=== PATIENT | female | born 1940 | race Caucasian/White ===

== ENCOUNTER 2017-03-23 10:29 | Emergency (ER) | payer MEDICARE, BC ==
[~2017-03-23] VITALS: Ht 167.6 cm; Wt 58.2 kg
[~2017-03-23 10:29] MED LIST: ASPI-611 PO; CALC600T12 PO; CHOL100046 PO; CYAN100070 PO; FOLI-43 PO; MULT-1141 PO; NOR5T PF; SIMV20TA5 PO; SYN0.088T PO
[2017-03-23 11:53] LABS: HEMATOCRIT 36.1 % (35.0-45.0); HEMOGLOBIN 12.5 g/dl (12.0-16.0); MEAN CORPUSCULAR HEMOGLOBIN 38.5 PG (27.0-31.0); MEAN CORPUSCULAR HGB CONC 34.5 % (33.0-36.5); MEAN CORPUSCULAR VOLUME 111.4 FL (78-98); MEAN PLATELET VOLUME 11.6 FL (7.4-10.4); PLATELET COUNT 170 X10'3 (140-440); RED BLOOD COUNT 3.24 X10'6 (4.20-5.60); RED CELL DISTRIBUTION WIDTH 15.9 % (11.5-14.5); WHITE BLOOD COUNT 13.8 X10'3 (4.5-11.0)
[2017-03-23 12:11] LABS: TOTAL CELLS COUNTED 100
[2017-03-23 12:16] LABS: ALANINE AMINOTRANSFERASE 21 U/L (12-78); ALBUMIN 4.1 G/DL (3.4-5.0); ALBUMIN/GLOBULIN RATIO 1.1 (1.1-1.5); ALKALINE PHOSPHATASE 71 IU/L (46-116); ANION GAP 9 (8-16); ASPARTATE AMINO TRANSFERASE 27 U/L (10-37); BILIRUBIN,TOTAL 0.3 MG/DL (0.1-1.0); BLOOD UREA NITROGEN 10 MG/DL (7-18); BUN/CREATININE RATIO 8.3 (6.6-38.0); CALCIUM 10.2 MG/DL (8.5-10.1); CHLORIDE 104 MMOL/L (99-107); GLUCOSE 98 MG/DL (70-104); MAGNESIUM 1.8 MG/DL (1.5-2.4); POTASSIUM 4.2 MMOL/L (3.5-5.1); SODIUM 141 MMOL/L (135-145); TOTAL CARBON DIOXIDE 28.4 MMOL/L (24-32); eGFR 44 ML/MIN
[2017-03-23 12:20] LABS: ANISOCYTOSIS 1+; LARGE PLATELETS FEW; PLATELET ESTIMATE NORMAL; TOXIC GRANULATION 3+; TOXIC VACUOLATION 1+
[2017-03-23 12:21] LABS: POLYCHROMASIA FEW
[2017-03-23] MEDS ORDERED: thiamine 100mg tablet PO ONE (12:50)
[2017-03-23] MEDS ORDERED: folic acid 1mg tablet PO ONE (12:50)
[2017-03-23] MEDS ORDERED: chlordiazePOXIDE 25mg capsule PO ONE (12:50)
[2017-03-23 13:15] LABS: CLARITY,URINE SLIGHTLY CLOUDY (Clear); COLOR,URINE STRAW (Yellow); GLUCOSE, URINE NEGATIVE (Neg); KETONES,URINE NEGATIVE (Neg); LEUKOCYTE ESTERASE ,URINE MODERATE (Neg); NITRITES, URINE NEGATIVE (Neg); OCCULT BLOOD,URINE NEGATIVE (Neg); PH,URINE 7.5 (4.8-8.0); PROTEIN,URINE NEGATIVE (Neg); UROBILINOGEN,URINE 0.2 E.U/dL (0.2-1.0)
[2017-03-23 13:18] LABS: UA COLLECTION TYPE CLN CATCH MIDSTREAM
[2017-03-23 13:21] LABS: MUCUS STRANDS FEW /LPF (Neg); SQUAMOUS EPITHELIAL CELL,UR MODERATE /LPF (FEW); TRANSITIONAL EPI CELLS,URINE MODERATE /HPF
[2017-03-23 13:22] LABS: BACTERIA,URINE FEW /HPF (Neg); RBC,URINE 0-2 /HPF (0-2); WBC CLUMPS,URINE FEW /HPF (NEGATIVE)
[2017-03-23 14:14] VITALS: BP 150/79
== END 2017-03-23 13:55 | disposition home or self-care (01) ==
LOC: ER 10:29
DX: R25.1 Tremor, unspecified (principal); I10 Essential (primary) hypertension; J44.9 Chronic obstructive pulmonary disease, unspecified; F17.210 Nicotine dependence, cigarettes, uncomplicated; Z79.82 Long term (current) use of aspirin
CPT/HCPCS: 36415; 71046; 80053; 81001; 83735; 84439; 84443; 84484; 85025; 87088; 93005; 99285

== ENCOUNTER 2018-11-19 03:37 | Emergency (ER) | payer MEDICARE, BC ==
[~2018-11-19] VITALS: Ht 170.2 cm; Wt 59.1 kg
[2018-11-19 04:06] LABS: BASOPHILS # (AUTO) 0.1 X10'3 (0-0.2); BASOPHILS % (AUTO) 0.4 % (0-1); EOSINOPHILS # (AUTO) 0.3 X10'3 (0-0.9); EOSINOPHILS % (AUTO) 2.2 % (0-6); HEMATOCRIT 35.3 % (35.0-45.0); LYMPHOCYTES # (AUTO) 2.3 X10'3 (1.1-4.8); LYMPHOCYTES % (AUTO) 15.2 % (21-51); MEAN CORPUSCULAR HEMOGLOBIN 34.9 PG (27.0-31.0); MEAN CORPUSCULAR HGB CONC 34.1 g/dL (33.0-36.5); MEAN CORPUSCULAR VOLUME 102.5 FL (78-98); MONOCYTES % (AUTO) 6.5 % (2-12); NEUTROPHILS # (AUTO) 11.6 X10'3 (1.8-7.7); NEUTROPHILS % (AUTO) 75.7 % (42-75); PLATELET COUNT 164 X10'3 (140-440); RED BLOOD COUNT 3.45 X10'6 (4.20-5.60); RED CELL DISTRIBUTION WIDTH 14.3 % (11.5-14.5); WHITE BLOOD COUNT 15.3 X10'3 (4.5-11.0)
[2018-11-19 04:15] LABS: PARTIAL THROMBOPLASTIN TIME 26 SECONDS (22-32)
[2018-11-19 04:18] LABS: ALANINE AMINOTRANSFERASE 23 U/L (12-78); ALBUMIN/GLOBULIN RATIO 1.1 (1.1-1.5); ALKALINE PHOSPHATASE 72 IU/L (46-116); ANION GAP 12 (8-16); ASPARTATE AMINO TRANSFERASE 19 U/L (10-37); BILIRUBIN,TOTAL 0.2 MG/DL (0.1-1.0); BLOOD UREA NITROGEN 21 MG/DL (7-18); BUN/CREATININE RATIO 13.3 (6.6-38.0); CALCIUM 10.1 MG/DL (8.5-10.1); CHLORIDE 105 MMOL/L (99-107); CREATININE 1.58 MG/DL (0.40-0.90); GLUCOSE 113 MG/DL (70-104); POTASSIUM 4.2 MMOL/L (3.5-5.1); SODIUM 142 MMOL/L (135-145); TOTAL CARBON DIOXIDE 25.4 MMOL/L (24-32); TOTAL PROTEIN 7.7 G/DL (6.4-8.2); eGFR 32 ML/MIN
[2018-11-19] MEDS ORDERED: morphine 4 MG/ML inj SYRINge IV PRN (04:40)
[2018-11-19] MEDS ORDERED: ondansetron/PF 4mg/2ml inj IV ONE (04:40)
[2018-11-19 05:08] LABS: LIPASE 223 U/L (73-393)
[2018-11-19] MEDS ORDERED: HYDR-3965 PO (06:35)
[2018-11-19 06:54] VITALS: BP 112/60
== END 2018-11-19 07:03 | disposition home or self-care (01) ==
LOC: ER 03:37
DX: K80.20 Calculus of gallbladder without cholecystitis without obstruction (principal); R10.11 Right upper quadrant pain; R10.12 Left upper quadrant pain; I10 Essential (primary) hypertension; J44.9 Chronic obstructive pulmonary disease, unspecified; F17.200 Nicotine dependence, unspecified, uncomplicated; Z79.82 Long term (current) use of aspirin; Z79.899 Other long term (current) drug therapy
CPT/HCPCS: 36415; 71045; 74176; 80053; 83690; 84484; 85025; 85610; 85730; 93005; 96374; 96375; 99284; J2270; J2405

== ENCOUNTER 2020-01-09 13:39 | Emergency (ER) | payer MEDICARE, BC ==
[~2020-01-09] VITALS: Ht 167.6 cm; Wt 57.7 kg
[~2020-01-09 13:39] MED LIST changes: -CALC600T12 PO; +CALC600T15 PO; +SIMV-42 PO; -SIMV20TA5 PO
[2020-01-09 13:46] VITALS: BP 148/11
[2020-01-09 14:24] LABS: BASOPHILS # (AUTO) 0.1 X10'3 (0-0.2); EOSINOPHILS # (AUTO) 0.1 X10'3 (0-0.9); EOSINOPHILS % (AUTO) 0.6 % (0-6); HEMATOCRIT 33.6 % (35.0-45.0); HEMOGLOBIN 11.4 g/dl (12.0-16.0); LYMPHOCYTES # (AUTO) 2.4 X10'3 (1.1-4.8); LYMPHOCYTES % (AUTO) 26.7 % (21-51); MEAN CORPUSCULAR HEMOGLOBIN 35.4 PG (27.0-31.0); MEAN CORPUSCULAR VOLUME 104.2 FL (78-98); MEAN PLATELET VOLUME 11.3 FL (7.4-10.4); MONOCYTES # (AUTO) 0.8 X10'3 (0-0.9); MONOCYTES % (AUTO) 9.1 % (2-12); NEUTROPHILS # (AUTO) 5.7 X10'3 (1.8-7.7); NEUTROPHILS % (AUTO) 62.6 % (42-75); PLATELET COUNT 138 X10'3 (140-440); RED BLOOD COUNT 3.22 X10'6 (4.20-5.60); RED CELL DISTRIBUTION WIDTH 13.8 % (11.5-14.5); WHITE BLOOD COUNT 9.2 X10'3 (4.5-11.0)
[2020-01-09 14:40] LABS: ALANINE AMINOTRANSFERASE 20 U/L (12-78); ALBUMIN/GLOBULIN RATIO 1.1 (1.1-1.5); ALKALINE PHOSPHATASE 74 IU/L (46-116); ANION GAP 8 (8-16); ASPARTATE AMINO TRANSFERASE 15 U/L (10-37); BILIRUBIN,TOTAL 0.2 MG/DL (0.1-1.0); BLOOD UREA NITROGEN 21 MG/DL (7-18); BUN/CREATININE RATIO 12.2 (6.6-38.0); CALCIUM 9.3 MG/DL (8.5-10.1); CHLORIDE 104 MMOL/L (99-107); CREATININE 1.72 MG/DL (0.40-0.90); GLUCOSE 96 MG/DL (70-104); SODIUM 138 MMOL/L (135-145); TOTAL CARBON DIOXIDE 25.8 MMOL/L (24-32); TOTAL PROTEIN 7.8 G/DL (6.4-8.2); eGFR 29 ML/MIN
[2020-01-09] MEDS ORDERED: PRED20TA PO (15:10)
[2020-01-09] MEDS ORDERED: AMOX-117 PO (15:10)
[2020-01-09] MEDS ORDERED: predniSONE 20 mg tablet PO ONE (15:10)
[2020-01-09] MEDS ORDERED: ALBU6.7H9 INH (15:10)
[2020-01-09 15:22] LABS: LARGE PLATELETS FEW; PLATELET ESTIMATE DECREASED
== END 2020-01-09 15:57 | disposition home or self-care (01) ==
LOC: ER 13:40
DX: J44.1 Chronic obstructive pulmonary disease with (acute) exacerbation (principal); J40 Bronchitis, not specified as acute or chronic; R06.02 Shortness of breath; R05 Cough; Z20.828 Contact with and (suspected) exposure to other viral communicable diseases; I10 Essential (primary) hypertension; F41.9 Anxiety disorder, unspecified; Z87.11 Personal history of peptic ulcer disease; Z98.890 Other specified postprocedural states; Z72.89 Other problems related to lifestyle; Z79.2 Long term (current) use of antibiotics; Z79.82 Long term (current) use of aspirin; Z79.899 Other long term (current) drug therapy
CPT/HCPCS: 36415; 71046; 80053; 83880; 84484; 85025; 87635; 93005; 99285; C9803; J7512; 85008

== ENCOUNTER 2020-01-13 11:27 | Emergency (ER) | payer MEDICARE, BC ==
[~2020-01-13] VITALS: Ht 167.6 cm; Wt 57.7 kg
[~2020-01-13 11:27] MED LIST changes: +ALBU6.7H9 INH; +AMOX-117 PO; +PRED20TA PO
[2020-01-13] MEDS ORDERED: aspirin 81mg tab.chew PO ONE (11:35)
[2020-01-13 12:23] LABS: BASOPHILS % (AUTO) 0.4 % (0-1); EOSINOPHILS % (AUTO) 0.2 % (0-6); HEMATOCRIT 35.8 % (35.0-45.0); HEMOGLOBIN 12.3 g/dl (12.0-16.0); LYMPHOCYTES # (AUTO) 1.1 X10'3 (1.1-4.8); LYMPHOCYTES % (AUTO) 10.3 % (21-51); MEAN CORPUSCULAR HEMOGLOBIN 35.6 PG (27.0-31.0); MEAN CORPUSCULAR HGB CONC 34.3 g/dL (33.0-36.5); MEAN CORPUSCULAR VOLUME 103.9 FL (78-98); MEAN PLATELET VOLUME 11.3 FL (7.4-10.4); MONOCYTES # (AUTO) 0.3 X10'3 (0-0.9); MONOCYTES % (AUTO) 2.9 % (2-12); NEUTROPHILS # (AUTO) 8.8 X10'3 (1.8-7.7); NEUTROPHILS % (AUTO) 86.2 % (42-75); PLATELET COUNT 176 X10'3 (140-440); RED BLOOD COUNT 3.44 X10'6 (4.20-5.60); RED CELL DISTRIBUTION WIDTH 13.7 % (11.5-14.5); WHITE BLOOD COUNT 10.3 X10'3 (4.5-11.0)
[2020-01-13 12:35] LABS: ALBUMIN 4.3 G/DL (3.4-5.0); ALBUMIN/GLOBULIN RATIO 1.2 (1.1-1.5); ANION GAP 10 (8-16); ASPARTATE AMINO TRANSFERASE 21 U/L (10-37); BILIRUBIN,TOTAL 0.3 MG/DL (0.1-1.0); BLOOD UREA NITROGEN 18 MG/DL (7-18); BUN/CREATININE RATIO 10.1 (6.6-38.0); CALCIUM 9.6 MG/DL (8.5-10.1); CHLORIDE 102 MMOL/L (99-107); CREATININE 1.79 MG/DL (0.40-0.90); GLUCOSE 113 MG/DL (70-104); POTASSIUM 4.3 MMOL/L (3.5-5.1); SODIUM 136 MMOL/L (135-145); TOTAL CARBON DIOXIDE 24.2 MMOL/L (24-32); eGFR 27 ML/MIN
[2020-01-13 12:36] LABS: ALANINE AMINOTRANSFERASE 25 U/L (12-78); ALKALINE PHOSPHATASE 76 IU/L (46-116)
[2020-01-13 12:43] LABS: MAGNESIUM 2.2 MG/DL (1.5-2.4)
[2020-01-13] MEDS ORDERED: LIDOcaine Viscous 15ml cup MM ONE (13:15)
[2020-01-13] MEDS ORDERED: famotidine 20mg tablet PO ONE (13:15)
[2020-01-13] MEDS ORDERED: mag hydrox/Alum hydrox/simeth 30ml oral suspension PO ONE (13:15)
[2020-01-13] MEDS ORDERED: PANT-47 PO (13:15)
[2020-01-13 13:26] VITALS: BP 126/67
== END 2020-01-13 13:56 | disposition home or self-care (01) ==
LOC: ER 11:27
DX: R07.89 Other chest pain (principal); K21.9 Gastro-esophageal reflux disease without esophagitis; I10 Essential (primary) hypertension; J44.9 Chronic obstructive pulmonary disease, unspecified; E07.9 Disorder of thyroid, unspecified; E78.00 Pure hypercholesterolemia, unspecified; Z86.73 Personal history of transient ischemic attack (TIA), and cerebral infarction without residual deficits; Z79.82 Long term (current) use of aspirin; Z79.899 Other long term (current) drug therapy
CPT/HCPCS: 36415; 71045; 80053; 83735; 83880; 84484; 85025; 93005; 99284; 99285

== ENCOUNTER 2020-10-22 13:21 | Emergency (ER) | payer BC, MEDICARE, OTHER ==
[~2020-10-22] VITALS: Ht 167.6 cm; Wt 58.6 kg
[~2020-10-22 13:21] MED LIST changes: -AMOX-117 PO; -CALC600T15 PO; +CALC600T35 PO; +PANT-47 PO; -PRED20TA PO
[2020-10-22 17:33] VITALS: BP 174/93
[2020-10-22 18:34] LABS: BASOPHILS # (AUTO) 0.1 X10'3 (0-0.2); EOSINOPHILS # (AUTO) 0.2 X10'3 (0-0.9); EOSINOPHILS % (AUTO) 1.7 % (0-6); HEMATOCRIT 35.9 % (35.0-45.0); LYMPHOCYTES # (AUTO) 3.6 X10'3 (1.1-4.8); LYMPHOCYTES % (AUTO) 33.2 % (21-51); MEAN CORPUSCULAR HEMOGLOBIN 34.1 PG (27.0-31.0); MEAN CORPUSCULAR HGB CONC 33.5 g/dL (33.0-36.5); MEAN CORPUSCULAR VOLUME 101.9 FL (78-98); MEAN PLATELET VOLUME 11.4 FL (7.4-10.4); MONOCYTES # (AUTO) 0.8 X10'3 (0-0.9); MONOCYTES % (AUTO) 7.7 % (2-12); NEUTROPHILS % (AUTO) 56.4 % (42-75); PLATELET COUNT 162 X10'3 (140-440); RED BLOOD COUNT 3.52 X10'6 (4.20-5.60); RED CELL DISTRIBUTION WIDTH 13.2 % (11.5-14.5); WHITE BLOOD COUNT 10.7 X10'3 (4.5-11.0)
[2020-10-22 18:55] LABS: ALANINE AMINOTRANSFERASE 17 U/L (12-78); ALBUMIN 4.7 G/DL (3.4-5.0); ALBUMIN/GLOBULIN RATIO 1.3 (1.1-1.5); ALKALINE PHOSPHATASE 95 IU/L (46-116); ANION GAP 13 (8-16); ASPARTATE AMINO TRANSFERASE 16 U/L (10-37); BILIRUBIN,TOTAL 0.4 MG/DL (0.1-1.0); BLOOD UREA NITROGEN 21 MG/DL (7-18); BUN/CREATININE RATIO 11.8 (6.6-38.0); CALCIUM 9.8 MG/DL (8.5-10.1); CHLORIDE 101 MMOL/L (99-107); CREATININE 1.78 MG/DL (0.40-0.90); GLUCOSE 98 MG/DL (70-104); MAGNESIUM 2.5 MG/DL (1.5-2.4); POTASSIUM 4.2 MMOL/L (3.5-5.1); SODIUM 136 MMOL/L (135-145); TOTAL PROTEIN 8.2 G/DL (6.4-8.2); eGFR 27 ML/MIN
[2020-10-22 19:19] LABS: LARGE PLATELETS FEW; PLATELET ESTIMATE NORMAL
== END 2020-10-22 20:28 | disposition left against medical advice (07) ==
LOC: ER 13:21
DX: R55 Syncope and collapse (principal); R42 Dizziness and giddiness; R53.1 Weakness; I10 Essential (primary) hypertension; J44.9 Chronic obstructive pulmonary disease, unspecified; F41.9 Anxiety disorder, unspecified; Z87.11 Personal history of peptic ulcer disease; Z98.890 Other specified postprocedural states; Z72.89 Other problems related to lifestyle; Z79.82 Long term (current) use of aspirin; Z79.899 Other long term (current) drug therapy
CPT/HCPCS: 36415; 70450; 71045; 80053; 83735; 84484; 85008; 85025; 93005; 99285

== ENCOUNTER 2020-10-31 13:14 | Outpatient (CLI) | payer MEDICARE, OTHER | END 2020-10-31 23:59 | disposition home or self-care (01) | LOC: CARD DIAG 13:14 | PROVIDERS: ATTEND Internal Medicine Cardiovascular Disease | DX: I08.1 Rheumatic disorders of both mitral and tricuspid valves (principal); I50.22 Chronic systolic (congestive) heart failure | CPT/HCPCS: 93306 ==

== ENCOUNTER 2021-10-19 19:09 | Emergency (ER) | payer MEDICARE, OTHER ==
[~2021-10-19] VITALS: Ht 167.6 cm; Wt 55.9 kg
[2021-10-19 19:26] VITALS: BP 148/73
[2021-10-19 19:55] LABS: BASOPHILS # (AUTO) 0.1 X10'3 (0-0.2); BASOPHILS % (AUTO) 0.7 % (0-1); EOSINOPHILS # (AUTO) 0.5 X10'3 (0-0.9); EOSINOPHILS % (AUTO) 5.3 % (0-6); HEMATOCRIT 28.3 % (35.0-45.0); HEMOGLOBIN 9.8 g/dl (12.0-16.0); LYMPHOCYTES # (AUTO) 2.4 X10'3 (1.1-4.8); LYMPHOCYTES % (AUTO) 26.4 % (21-51); MEAN CORPUSCULAR HGB CONC 34.8 g/dL (33.0-36.5); MEAN CORPUSCULAR VOLUME 100.8 FL (78-98); MONOCYTES # (AUTO) 0.8 X10'3 (0-0.9); MONOCYTES % (AUTO) 8.9 % (2-12); NEUTROPHILS # (AUTO) 5.4 X10'3 (1.8-7.7); NEUTROPHILS % (AUTO) 58.7 % (42-75); PLATELET COUNT 161 X10'3 (140-440); RED BLOOD COUNT 2.81 X10'6 (4.20-5.60); RED CELL DISTRIBUTION WIDTH 13.3 % (11.5-14.5); WHITE BLOOD COUNT 9.3 X10'3 (4.5-11.0)
[2021-10-19 19:59] LABS: ALANINE AMINOTRANSFERASE 21 U/L (12-78); ALBUMIN/GLOBULIN RATIO 1.2 (1.1-1.5); ALKALINE PHOSPHATASE 65 IU/L (46-116); ANION GAP 9 (8-16); ASPARTATE AMINO TRANSFERASE 18 U/L (10-37); BILIRUBIN,TOTAL 0.2 MG/DL (0.1-1.0); BLOOD UREA NITROGEN 28 MG/DL (7-18); BUN/CREATININE RATIO 14.5 (6.6-38.0); CALCIUM 9.1 MG/DL (8.5-10.1); CHLORIDE 95 MMOL/L (99-107); CREATININE 1.93 MG/DL (0.40-0.90); GLUCOSE 117 MG/DL (70-104); POTASSIUM 4.8 MMOL/L (3.5-5.1); SODIUM 127 MMOL/L (135-145); TOTAL CARBON DIOXIDE 23.5 MMOL/L (24-32); TOTAL PROTEIN 7.3 G/DL (6.4-8.2); eGFR 25 ML/MIN
== END 2021-10-19 22:10 | disposition left against medical advice (07) ==
LOC: ER 19:10
DX: R53.1 Weakness (principal); R55 Syncope and collapse; Z53.21 Procedure and treatment not carried out due to patient leaving prior to being seen by health care provider
CPT/HCPCS: 71045; 80053; 83880; 84484; 85025; 93005

== ENCOUNTER 2022-06-15 19:41 | Emergency (ER) | payer MEDICARE, OTHER ==
[~2022-06-15] VITALS: Ht 167.6 cm; Wt 51.8 kg
[~2022-06-15 19:41] MED LIST changes: +ALBU17AE26 IH; -ALBU6.7H9 INH; +APIX2.5T PO; +AZI25OT PO; +BENA20TA82 PO; +BENZ-111 PO; -CALC600T35 PO; -CHOL100046 PO; -CYAN100070 PO; +GUAI600T45 PO; +LORA-268 PO; +METH4TAB81 PO; -MULT-1141 PO; -NOR5T PF; +NOR5T PO; +OMEP40CA21 PO; -PANT-47 PO
[2022-06-15 20:15] LABS: BASOPHILS % (AUTO) 0.3 % (0-1); EOSINOPHILS # (AUTO) 0.2 X10'3 (0-0.9); EOSINOPHILS % (AUTO) 1.5 % (0-6); HEMOGLOBIN 9.6 g/dl (12.0-16.0); LYMPHOCYTES # (AUTO) 1.3 X10'3 (1.1-4.8); LYMPHOCYTES % (AUTO) 8.5 % (21-51); MEAN CORPUSCULAR HEMOGLOBIN 33.5 PG (27.0-31.0); MEAN CORPUSCULAR VOLUME 101.4 FL (78-98); MEAN PLATELET VOLUME 10.5 FL (7.4-10.4); MONOCYTES # (AUTO) 1.2 X10'3 (0-0.9); MONOCYTES % (AUTO) 7.9 % (2-12); NEUTROPHILS # (AUTO) 12.2 X10'3 (1.8-7.7); NEUTROPHILS % (AUTO) 81.8 % (42-75); PLATELET COUNT 139 X10'3 (140-440); RED BLOOD COUNT 2.86 X10'6 (4.20-5.60); RED CELL DISTRIBUTION WIDTH 13.6 % (11.5-14.5); WHITE BLOOD COUNT 14.9 X10'3 (4.5-11.0)
[2022-06-15 20:27] LABS: ALANINE AMINOTRANSFERASE 19 U/L (12-78); ALBUMIN 3.5 G/DL (3.4-5.0); ALBUMIN/GLOBULIN RATIO 1.2 (1.1-1.5); ALKALINE PHOSPHATASE 61 IU/L (46-116); ANION GAP 10 (8-16); ASPARTATE AMINO TRANSFERASE 15 U/L (10-37); BILIRUBIN,TOTAL 0.2 MG/DL (0.1-1.0); BLOOD UREA NITROGEN 41 MG/DL (7-18); BUN/CREATININE RATIO 11.7 (10.0-20.0); CHLORIDE 94 MMOL/L (99-107); CREATININE 3.49 MG/DL (0.40-0.90); GLUCOSE 109 MG/DL (70-104); LIPASE 82 U/L (73-393); POTASSIUM 4.8 MMOL/L (3.5-5.1); SODIUM 128 MMOL/L (135-145); TOTAL CARBON DIOXIDE 24.1 MMOL/L (24-32); TOTAL PROTEIN 6.5 G/DL (6.4-8.2); eGFR 13 ML/MIN
[2022-06-15 21:07] LABS: CLARITY,URINE CLOUDY (Clear); COLOR,URINE YELLOW (Yellow); GLUCOSE, URINE NEGATIVE (Neg); KETONES,URINE NEGATIVE (Neg); LEUKOCYTE ESTERASE ,URINE SMALL (Neg); NITRITES, URINE NEGATIVE (Neg); OCCULT BLOOD,URINE NEGATIVE (Neg); PROTEIN,URINE 100 mg/dl (Neg); UROBILINOGEN,URINE 0.2 E.U/dL (0.2-1.0)
[2022-06-15 21:12] LABS: UA COLLECTION TYPE CLN CATCH MIDSTREAM
[2022-06-15 21:13] LABS: SQUAMOUS EPITHELIAL CELL,UR MANY /LPF (FEW)
[2022-06-15 21:14] LABS: WBC,URINE TNTC /HPF (0-4); YEAST MODERATE /HPF (NEGATIVE)
[2022-06-15 21:15] LABS: BACTERIA,URINE 1+ /HPF (Neg); TRANSITIONAL EPI CELLS,URINE FEW /HPF
[2022-06-15] MEDS ORDERED: normal saline 1000ml 1,000 ML IV ONE (21:35)
[2022-06-15] MEDS ORDERED: ondansetron/PF 4mg/2ml inj IV ONE (21:35)
[2022-06-15 23:11] VITALS: BP 139/69
== END 2022-06-15 23:13 | disposition home or self-care (01) ==
LOC: ER 19:41
DX: B02.9 Zoster without complications (principal); R11.2 Nausea with vomiting, unspecified; I71.40 Abdominal aortic aneurysm, without rupture, unspecified; J44.9 Chronic obstructive pulmonary disease, unspecified; I12.9 Hypertensive chronic kidney disease with stage 1 through stage 4 chronic kidney disease, or unspecified chronic kidney disease; N18.9 Chronic kidney disease, unspecified; E07.9 Disorder of thyroid, unspecified; F41.9 Anxiety disorder, unspecified
CPT/HCPCS: 36415; 74176; 80053; 81001; 83690; 85025; 87088; 96361; 96374; 99285; J2405; J7030

== ENCOUNTER 2022-10-04 11:01 | Emergency (ER) | payer MEDICARE, OTHER ==
[~2022-10-04] VITALS: Ht 167.6 cm; Wt 60.0 kg
[~2022-10-04 11:01] MED LIST changes: -APIX2.5T PO; -AZI25OT PO; -BENZ-111 PO; +CYAN250010 PO; +FERR324T4 PO; +FLUT1BLS3 INH; -GUAI600T45 PO; +IPRA3AMP9 NEB; -METH4TAB81 PO; +MULT-1133 PO; -OMEP40CA21 PO
[2022-10-04 11:19] LABS: BASOPHILS # (AUTO) 0.1 X10'3 (0-0.2); BASOPHILS % (AUTO) 0.9 % (0-1); EOSINOPHILS # (AUTO) 1.5 X10'3 (0-0.9); EOSINOPHILS % (AUTO) 14.4 % (0-6); HEMATOCRIT 26.8 % (35.0-45.0); LYMPHOCYTES # (AUTO) 1.8 X10'3 (1.1-4.8); LYMPHOCYTES % (AUTO) 17.5 % (21-51); MEAN CORPUSCULAR HEMOGLOBIN 34.1 PG (27.0-31.0); MEAN CORPUSCULAR HGB CONC 33.5 g/dL (33.0-36.5); MEAN CORPUSCULAR VOLUME 101.9 FL (78-98); MEAN PLATELET VOLUME 9.6 FL (7.4-10.4); MONOCYTES # (AUTO) 0.7 X10'3 (0-0.9); MONOCYTES % (AUTO) 7.1 % (2-12); NEUTROPHILS # (AUTO) 6.1 X10'3 (1.8-7.7); NEUTROPHILS % (AUTO) 60.1 % (42-75); PLATELET COUNT 225 X10'3 (140-440); RED BLOOD COUNT 2.63 X10'6 (4.20-5.60); RED CELL DISTRIBUTION WIDTH 14.6 % (11.5-14.5); WHITE BLOOD COUNT 10.2 X10'3 (4.5-11.0)
[2022-10-04 11:35] LABS: ALANINE AMINOTRANSFERASE 25 U/L (12-78); ALBUMIN 4.2 G/DL (3.4-5.0); ALBUMIN/GLOBULIN RATIO 1.3 (1.1-1.5); ALKALINE PHOSPHATASE 69 IU/L (46-116); ANION GAP 10 (8-16); ASPARTATE AMINO TRANSFERASE 19 U/L (10-37); BILIRUBIN,TOTAL 0.3 MG/DL (0.1-1.0); BLOOD UREA NITROGEN 44 MG/DL (7-18); BUN/CREATININE RATIO 12.4 (10.0-20.0); CHLORIDE 95 MMOL/L (99-107); CREATININE 3.54 MG/DL (0.40-0.90); GLUCOSE 116 MG/DL (70-104); SODIUM 128 MMOL/L (135-145); TOTAL CARBON DIOXIDE 23.4 MMOL/L (24-32); TOTAL PROTEIN 7.5 G/DL (6.4-8.2); eCRCL 12 ML/MIN; eGFR 12 ML/MIN
[2022-10-04 11:42] LABS: PRO BRAIN NATRIURETIC PEPTIDE 4177 PG/ML (0-450)
[2022-10-04 12:00] VITALS: TEMP 97.6
[2022-10-04 12:57] LABS: FREE T4 (FREE THYROXINE) 1.22 NG/DL (0.73-1.40); THYROID STIMULATING HORMONE 2.48 ulU/ml (0.34-4.50)
[2022-10-04 13:00] VITALS: BP 160/75; PULSE 84; RESP 18
[2022-10-04 14:55] VITALS: O2SAT 94
== END 2022-10-04 14:58 | disposition home or self-care (01) ==
LOC: ER 11:02
DX: J44.1 Chronic obstructive pulmonary disease with (acute) exacerbation (principal); I13.0 Hypertensive heart and chronic kidney disease with heart failure and stage 1 through stage 4 chronic kidney disease, or unspecified chronic kidney disease; I50.9 Heart failure, unspecified; E78.00 Pure hypercholesterolemia, unspecified; N18.9 Chronic kidney disease, unspecified; Z79.899 Other long term (current) drug therapy; Z79.82 Long term (current) use of aspirin
CPT/HCPCS: 36415; 71045; 80053; 83880; 84439; 84443; 84484; 85025; 93005; 99285

== ENCOUNTER 2022-12-08 10:45 | Inpatient (IN) | payer MEDICARE, OTHER ==
[~2022-12-08] VITALS: Ht 167.6 cm; Wt 48.0 kg
[2022-12-08] VITALS (11 sets, daily range): BP systolic 138–142; BP diastolic 49–56; PULSE 81–94; RESP 14–24; TEMP 96.7–98.4; O2SAT 92–98
[~2022-12-08 10:45] MED LIST changes: -ASPI-611 PO; +IPRA3AMP31 NEB; -IPRA3AMP9 NEB
[2022-12-08 11:47] LABS: BASOPHILS # (AUTO) 0.1 X10'3 (0-0.2); BASOPHILS % (AUTO) 0.6 % (0-1); EOSINOPHILS % (AUTO) 18.7 % (0-6); HEMATOCRIT 24.4 % (35.0-45.0); HEMOGLOBIN 8.2 g/dl (12.0-16.0); LYMPHOCYTES # (AUTO) 1.4 X10'3 (1.1-4.8); LYMPHOCYTES % (AUTO) 13.4 % (21-51); MEAN CORPUSCULAR HGB CONC 33.4 g/dL (33.0-36.5); MEAN CORPUSCULAR VOLUME 104.7 FL (78-98); MEAN PLATELET VOLUME 10.6 FL (7.4-10.4); MONOCYTES # (AUTO) 0.8 X10'3 (0-0.9); MONOCYTES % (AUTO) 7.4 % (2-12); NEUTROPHILS # (AUTO) 6.3 X10'3 (1.8-7.7); NEUTROPHILS % (AUTO) 59.9 % (42-75); PLATELET COUNT 153 X10'3 (140-440); RED BLOOD COUNT 2.33 X10'6 (4.20-5.60); RED CELL DISTRIBUTION WIDTH 16.8 % (11.5-14.5); WHITE BLOOD COUNT 10.6 X10'3 (4.5-11.0)
[2022-12-08 12:01] LABS: ALANINE AMINOTRANSFERASE 19 U/L (12-78); ALBUMIN 4.1 G/DL (3.4-5.0); ALBUMIN/GLOBULIN RATIO 1.3 (1.1-1.5); ALKALINE PHOSPHATASE 55 IU/L (46-116); ANION GAP 11 (8-16); ASPARTATE AMINO TRANSFERASE 17 U/L (10-37); BILIRUBIN,TOTAL 0.2 MG/DL (0.1-1.0); BLOOD UREA NITROGEN 40 MG/DL (7-18); BUN/CREATININE RATIO 10.1 (10.0-20.0); CALCIUM 9.4 MG/DL (8.5-10.1); CHLORIDE 103 MMOL/L (99-107); CREATININE 3.96 MG/DL (0.40-0.90); GLUCOSE 112 MG/DL (70-104); POTASSIUM 4.5 MMOL/L (3.5-5.1); SODIUM 137 MMOL/L (135-145); TOTAL CARBON DIOXIDE 22.8 MMOL/L (24-32); TOTAL PROTEIN 7.3 G/DL (6.4-8.2); eCRCL 8 ML/MIN; eGFR 11 ML/MIN
[2022-12-08 12:09] LABS: PRO BRAIN NATRIURETIC PEPTIDE 5149 PG/ML (0-450)
[2022-12-08 12:29] LABS: TOTAL CELLS COUNTED 100
[2022-12-08 12:30] LABS: ANISOCYTOSIS 1+; LARGE PLATELETS FEW; PLATELET ESTIMATE NORMAL
[2022-12-08] MEDS ORDERED: methylPREDNISolone sod succ 125mg/2ml vial IV ONE (12:30)
[2022-12-08] MEDS ORDERED: albuterol 2.5 MG/3 ML nebule CONTNEB PRN (12:30)
--- NOTE | 2022-12-08 12:37 | NUR ---
paged the rt at this time.
[2022-12-08] MEDS ORDERED: morphine 2 MG/ML inj. syringe IV PRN (14:35)
[2022-12-08] MEDS ORDERED: potassium Cl 20 mEq SR tablet PO PRN ×2 (14:35)
[2022-12-08] MEDS ORDERED: magnesium Cl slow-release 64mg tablet PO PRN (14:35)
[2022-12-08] MEDS ORDERED: magnesium 4gm in 100ml NS 100 ML IV PRN (14:35)
[2022-12-08] MEDS ORDERED: acetaminophen 325mg tablet PO PRN (14:35)
[2022-12-08] MEDS ORDERED: potassium Cl 40MEQ/1/2NS 520ml 520 ML IV PRN (14:35)
[2022-12-08] MEDS ORDERED: HYDROcodone/acetaminophen 5mg/325mg tablet PO PRN (14:35)
[2022-12-08] MEDS ORDERED: magnesium 2GM in 50ml NS 50 ML IV PRN (14:35)
[2022-12-08] MEDS ORDERED: DOCU-22 PO (15:00)
[2022-12-08] MEDS ORDERED: PRED2.5T4 PO (15:00)
[2022-12-08] MEDS ORDERED: CefTRIAXone 2gm/D5W 50ml BAG 50 ML IV ONE (15:00)
[2022-12-08] MEDS ORDERED: ipratropium/albuterol 3ml nebule NEB PRN (15:00)
[2022-12-08 15:15] LABS: ABG BASE EXCESS -6.3 mmol/L (-2.0-2.0); ABG HCO3 19.3 mmol/L (22.0-26.0); ABG OXYGEN SATURATION 92.2 % (94-97); ABG PCO2 (T) 38.5 mmHg (32.0-45.0); ABG PH (T) 7.317 (7.350-7.450); ABG PO2 (T) 62.1 mmHg (75.0-100.0); ALLEN'S TEST POSITIVE; FCOHb 0.1 % (0.0-3.9); FHHb 7.8 % (0.0-5.0); FMetHb 0.3 % (0.0-1.5); FO2Hb 91.8 % (94-97); PATIENT TEMPERATURE 36.9; TOTAL HEMOGLOBIN 8.6 G/dl (12.0-16.0)
[2022-12-08] MEDS: normal saline 1000ml 1,000 ML IV SCH (15:43)
[2022-12-08] MEDS: LORazepam 0.5 MG tablet PO PRN (15:48)
[2022-12-08] MEDS: albuterol 2.5 MG/3 ML nebule NEB SCH ×3 (16:07→23:53)
--- NOTE | 2022-12-08 16:44 | NUR ---
Patient in room ED 1. I have received report from DAVIDA HO FROM ER and had the opportunity to ask questions and assume patient care.
--- NOTE | 2022-12-08 18:32 | NUR ---
Problems reprioritized. Patient report given, questions answered & plan of care reviewed with DAVIDA MCKENNA.
[2022-12-08] MEDS ORDERED: enoxaparin 40mg/0.4ml syringe SQ SCH (20:00)
[2022-12-08] MEDS: atorvastatin 10mg tablet PO SCH (20:25)
[2022-12-08] MEDS: methylPREDNISolone sod succ 125mg/2ml vial IV SCH (20:26)
[2022-12-08] MEDS ORDERED: temazepam 15mg capsule PO PRN (21:00)
--- NOTE | 2022-12-08 23:37 | NUR ---
pt complained of having oral thrush, was notified and nystatin oral suspension was ordered to swab the inner mouth of the pt q4hrs prn ,as pt (per pt's report) does not swallow or rinse mouth with any liquid med ,because it causes uncomfortable gag reflex and sometimes nausea /vomiting. Addendum: 12/08/22 at [id number] by Lyssa Mittal RN pls ignore the above note. It's a wrong pt
[2022-12-09] VITALS (13 sets, daily range): BP systolic 96–174; BP diastolic 51–61; PULSE 67–93; RESP 16–22; TEMP 98–98.5; O2SAT 88–98
[2022-12-09] MEDS ORDERED: morphine 2 MG/ML inj. syringe IV PRN (01:05)
--- NOTE | 2022-12-09 01:08 | NUR ---
Pt requested for cough medication, was notified and He ordered iv morphine 2mg prn q4hrs. Pt refused the 2mg morphine because she would prefer a much lower dose. Hence ,1mg of morphine was given to pt cos she already have order for it in the emar.
[2022-12-09] MEDS: albuterol 2.5 MG/3 ML nebule NEB SCH ×6 (04:00→23:48)
[2022-12-09] MEDS: ondansetron/PF 4mg/2ml inj IV PRN ×3 (05:51→21:37)
--- NOTE | 2022-12-09 06:10 | NUR ---
Patient in room PCU 3028. I have received report from Vangie and had the opportunity to ask questions and assume patient care.
--- NOTE | 2022-12-09 06:31 | NUR ---
Problems reprioritized. Patient report given, questions answered & plan of care reviewed with Mariposa.
[2022-12-09] MEDS: methylPREDNISolone sod succ 125mg/2ml vial IV SCH ×2 (07:49→21:33)
[2022-12-09] MEDS: CefTRIAXone 2gm/D5W 50ml BAG 50 ML IV SCH (07:50)
[2022-12-09] MEDS: levoTHYROXINE 88mcg tablet PO SCH (08:50)
[2022-12-09] MEDS: lisinopril 20mg tablet PO SCH (08:50)
[2022-12-09 08:51] LABS: BASOPHILS % (AUTO) 0.1 % (0-1); EOSINOPHILS % (AUTO) 0 % (0-6); HEMATOCRIT 22.5 % (35.0-45.0); HEMOGLOBIN 7.4 g/dl (12.0-16.0); LYMPHOCYTES # (AUTO) 0.6 X10'3 (1.1-4.8); MEAN CORPUSCULAR HEMOGLOBIN 34.1 PG (27.0-31.0); MEAN CORPUSCULAR HGB CONC 32.7 g/dL (33.0-36.5); MEAN CORPUSCULAR VOLUME 104.3 FL (78-98); MEAN PLATELET VOLUME 10.6 FL (7.4-10.4); MONOCYTES # (AUTO) 0.5 X10'3 (0-0.9); MONOCYTES % (AUTO) 4.4 % (2-12); NEUTROPHILS # (AUTO) 9.7 X10'3 (1.8-7.7); NEUTROPHILS % (AUTO) 89.5 % (42-75); PLATELET COUNT 136 X10'3 (140-440); RED BLOOD COUNT 2.16 X10'6 (4.20-5.60); RED CELL DISTRIBUTION WIDTH 16.4 % (11.5-14.5); WHITE BLOOD COUNT 10.8 X10'3 (4.5-11.0)
[2022-12-09] MEDS: multivitamins, therapeutics tablet PO SCH (08:51)
[2022-12-09] MEDS: ferrous sulfate 325mg tablet PO SCH (08:51)
[2022-12-09] MEDS: nicotine 14mg patch - 24hr TD SCH (08:52)
[2022-12-09] MEDS: amLODIPine 5mg tablet PO SCH (08:52)
[2022-12-09] MEDS: acetaminophen 325mg tablet PO PRN ×2 (09:01→15:10)
[2022-12-09] MEDS: LORazepam 0.5 MG tablet PO PRN ×2 (09:01→21:01)
[2022-12-09 09:26] LABS: ALANINE AMINOTRANSFERASE 16 U/L (12-78); ALBUMIN 3.8 G/DL (3.4-5.0); ALBUMIN/GLOBULIN RATIO 1.3 (1.1-1.5); ALKALINE PHOSPHATASE 49 IU/L (46-116); ANION GAP 11 (8-16); ASPARTATE AMINO TRANSFERASE 14 U/L (10-37); BILIRUBIN,TOTAL 0.3 MG/DL (0.1-1.0); BLOOD UREA NITROGEN 45 MG/DL (7-18); BUN/CREATININE RATIO 11.5 (10.0-20.0); CALCIUM 9.5 MG/DL (8.5-10.1); CHLORIDE 100 MMOL/L (99-107); GLUCOSE 153 MG/DL (70-104); POTASSIUM 4.9 MMOL/L (3.5-5.1); SODIUM 133 MMOL/L (135-145); TOTAL CARBON DIOXIDE 21.6 MMOL/L (24-32); TOTAL PROTEIN 6.8 G/DL (6.4-8.2); eCRCL 9 ML/MIN; eGFR 11 ML/MIN
[2022-12-09 09:34] LABS: ANISOCYTOSIS 1+; HYPOCHROMASIA 1+; PLATELET ESTIMATE DECREASED
[2022-12-09 09:35] LABS: LARGE PLATELETS FEW
[2022-12-09 09:43] LABS: SCHISTOCYTES FEW
[2022-12-09] MEDS ORDERED: guaiFENesin/DM/phenylephrine syrup 120ml bottle PO PRN (11:15)
--- NOTE | 2022-12-09 12:13 | NUR ---
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 Pt/family seen by RD at bedside; pt reports UBW ~135 pounds in July and has lost weight w/ decreased drive to eat getting full quickly. Pt only scaled wt hx stable 106 pounds since September and 114 pounds in July, however, met malnutrition critieria September admit. Pt w/ moderate to severe temporal wasting and bilateral arms severe muscle/fat loss evident during RD visit. Given this pt meets severe malnutrition criteria-MD notified. Pt reports picks throughout the day w/ breakfast typically largest meal but can get full after only a few bites. Pt reports drinks Ensures at home but not routinely; is agreeable to Ensure Enlive only WL per preferences-MD notified. RD educated pt/family on nutrition repletion and wt gaining strategies w/ RD contact information and Ensure coupons provided. Pt denies trouble chewing/swallowing or food preferences outside thinking our portions are too large. PO ~38% first 2 heart healthy meals this admit w/ N present this AM during RD visit. RD d/w MD recommends liberalizing to regular diet; MD agreeable new diet pending physician approval in EMR. LBM 12/06. Will monitor for further PO trends and nutrition intervention needs. Rec: 1. continue regular diet; no diet restrictions in view of malnutrition status; encourage food from outside if pt preference 2. vanilla Ensure Enlive WL per pt preferences; pending physician verification in EMR. Monitor ONS acceptance and frequency adjustment needs 3. smoothie WB, milkshake WS for additional kcals 4. routine MVI and Fe for nutrition repletion per MD 5. routine bowel care 6. weekly wt Addendum: 12/09/22 at [address] Amended: Links added.
--- NOTE | 2022-12-09 16:50 | NUR ---
Dietary called and informed me that pt diet was switched to regular due to her malnourished state. He also inquired if she could be started on a multivite with minerals and iron. I paged Dr Vogt and she approved so order placed. I changed pts dressing on her coccyx after washing with NS and patting dry. Pt had 7960ml of fluid drained from her abdomen today and says she feels much better. She feels that a substantial amount of pressure has been relieved from her lungs and esophagus. She is a bit uncomfortable but overall quite relieved.
--- NOTE | 2022-12-09 18:19 | NUR ---
Problems reprioritized. Patient report given, questions answered & plan of care reviewed with Zulma.
[2022-12-09] MEDS: guaiFENesin/DM 10ml UD oral syrup PO PRN (18:38)
[2022-12-09] MEDS: enoxaparin 30mg/0.3ml syringe SQ SCH (20:00)
[2022-12-09] MEDS: atorvastatin 10mg tablet PO SCH (21:03)
[2022-12-10] VITALS (13 sets, daily range): BP systolic 131–164; BP diastolic 57–66; PULSE 74–90; RESP 13–24; TEMP 97.6–98.1; O2SAT 90–97
[2022-12-10] MEDS: albuterol 2.5 MG/3 ML nebule NEB SCH ×3 (03:48→11:00)
[2022-12-10] MEDS: guaiFENesin/DM 10ml UD oral syrup PO PRN (03:54)
[2022-12-10] MEDS: acetaminophen 325mg tablet PO PRN (03:54)
[2022-12-10] MEDS: LORazepam 0.5 MG tablet PO PRN ×2 (03:54→14:22)
--- NOTE | 2022-12-10 05:45 | NUR ---
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
--- NOTE | 2022-12-10 06:35 | NUR ---
Patient in room PCU 3028. I have received report from SOLO GASCA, and had the opportunity to ask questions and assume patient care.
[2022-12-10] MEDS: CefTRIAXone 2gm/D5W 50ml BAG 50 ML IV SCH (08:19)
[2022-12-10 08:49] LABS: BASOPHILS % (AUTO) 0.1 % (0-1); EOSINOPHILS % (AUTO) 0 % (0-6); HEMOGLOBIN 7.3 g/dl (12.0-16.0); LYMPHOCYTES # (AUTO) 0.6 X10'3 (1.1-4.8); LYMPHOCYTES % (AUTO) 3.1 % (21-51); MEAN CORPUSCULAR HEMOGLOBIN 33.2 PG (27.0-31.0); MEAN CORPUSCULAR HGB CONC 31.9 g/dL (33.0-36.5); MEAN CORPUSCULAR VOLUME 104.1 FL (78-98); MEAN PLATELET VOLUME 11.1 FL (7.4-10.4); MONOCYTES # (AUTO) 0.7 X10'3 (0-0.9); MONOCYTES % (AUTO) 3.7 % (2-12); NEUTROPHILS # (AUTO) 16.7 X10'3 (1.8-7.7); NEUTROPHILS % (AUTO) 93.1 % (42-75); PLATELET COUNT 151 X10'3 (140-440); RED BLOOD COUNT 2.21 X10'6 (4.20-5.60); RED CELL DISTRIBUTION WIDTH 17.2 % (11.5-14.5); WHITE BLOOD COUNT 17.9 X10'3 (4.5-11.0)
[2022-12-10 09:06] LABS: ALANINE AMINOTRANSFERASE 18 U/L (12-78); ALBUMIN 3.6 G/DL (3.4-5.0); ALBUMIN/GLOBULIN RATIO 1.2 (1.1-1.5); ALKALINE PHOSPHATASE 41 IU/L (46-116); ANION GAP 10 (8-16); ASPARTATE AMINO TRANSFERASE 14 U/L (10-37); BILIRUBIN,TOTAL 0.3 MG/DL (0.1-1.0); BLOOD UREA NITROGEN 52 MG/DL (7-18); BUN/CREATININE RATIO 14.1 (10.0-20.0); CALCIUM 9.2 MG/DL (8.5-10.1); CHLORIDE 103 MMOL/L (99-107); CREATININE 3.68 MG/DL (0.40-0.90); GLUCOSE 114 MG/DL (70-104); SODIUM 135 MMOL/L (135-145); TOTAL CARBON DIOXIDE 22.5 MMOL/L (24-32); TOTAL PROTEIN 6.5 G/DL (6.4-8.2); eCRCL 9 ML/MIN; eGFR 12 ML/MIN
[2022-12-10] MEDS: levoTHYROXINE 88mcg tablet PO SCH (09:25)
[2022-12-10] MEDS: multivitamins, therapeutics tablet PO SCH (09:25)
[2022-12-10] MEDS: methylPREDNISolone sod succ 125mg/2ml vial IV SCH ×2 (09:31→20:46)
[2022-12-10] MEDS: ferrous sulfate 325mg tablet PO SCH (09:33)
[2022-12-10] MEDS: lisinopril 20mg tablet PO SCH (09:34)
[2022-12-10] MEDS: nicotine 14mg patch - 24hr TD SCH (09:35)
[2022-12-10] MEDS: amLODIPine 5mg tablet PO SCH (09:41)
[2022-12-10] MEDS ORDERED: ipratropium/albuterol 3ml nebule NEB SCH (11:45)
--- NOTE | 2022-12-10 12:09 | NUR ---
PAGE TO RESPIRATORY [id number]. PABLO CASTREJON. DR OCHOA ORDERED ABG. THANK YOU . VITALIY @[phone]
[2022-12-10] MEDS ORDERED: ipratropium 0.5 MG/2.5ML nebule IH PRN (12:20)
[2022-12-10 12:37] LABS: ABG BASE EXCESS -6.5 mmol/L (-2.0-2.0); ABG HCO3 18.9 mmol/L (22.0-26.0); ABG OXYGEN SATURATION 90.3 % (94-97); ABG PCO2 (T) 36.3 mmHg (32.0-45.0); ABG PH (T) 7.332 (7.350-7.450); ABG PO2 (T) 59.4 mmHg (75.0-100.0); ALLEN'S TEST POSITIVE; FCOHb 0.1 % (0.0-3.9); FHHb 9.7 % (0.0-5.0); FLOW 3 L/min; FMetHb 0.3 % (0.0-1.5); FO2Hb 89.9 % (94-97); MODE NASAL CANNULA; PATIENT TEMPERATURE 36.5; TOTAL HEMOGLOBIN 8.5 G/dl (12.0-16.0)
--- NOTE | 2022-12-10 14:26 | NUR ---
PAGE SENT [id number], PABLO COOK, PT REPORTS NEW MED DIDN'T WORK EXPECTED. IS THERE SOMETHING SHE CAN HAVE NOW? JUST GAVE ATIVAN. SHE WOULD LIKE TO SPEAK TO YOU WHEN YOU HAVE MOMENT. THANK YOU, LALITHA X [phone]
[2022-12-10] MEDS: ipratropium 0.5 MG/2.5ML nebule IH SCH ×2 (14:51→20:23)
[2022-12-10] MEDS: normal saline 1000ml 1,000 ML IV SCH (15:27)
--- NOTE | 2022-12-10 18:34 | NUR ---
Problems reprioritized. Patient report given, questions answered & plan of care reviewed with SOLO GASCA.
[2022-12-10] MEDS: enoxaparin 30mg/0.3ml syringe SQ SCH (20:00)
[2022-12-10] MEDS: atorvastatin 10mg tablet PO SCH (21:52)
[2022-12-11] VITALS (8 sets, daily range): BP systolic 154–176; BP diastolic 70–74; PULSE 75–92; RESP 14–20; TEMP 97.6–98.1; O2SAT 93–97
[2022-12-11] MEDS: ipratropium 0.5 MG/2.5ML nebule IH SCH ×2 (03:19→09:05)
[2022-12-11] MEDS: methylPREDNISolone sod succ 125mg/2ml vial IV SCH (07:32)
[2022-12-11] MEDS: CefTRIAXone 2gm/D5W 50ml BAG 50 ML IV SCH (07:33)
[2022-12-11] MEDS: lisinopril 20mg tablet PO SCH (07:35)
[2022-12-11] MEDS: multivitamins, therapeutics tablet PO SCH (07:35)
[2022-12-11] MEDS: ferrous sulfate 325mg tablet PO SCH (07:35)
[2022-12-11] MEDS: levoTHYROXINE 88mcg tablet PO SCH (07:36)
[2022-12-11] MEDS: amLODIPine 5mg tablet PO SCH (07:36)
[2022-12-11] MEDS: nicotine 14mg patch - 24hr TD SCH (07:37)
[2022-12-11 07:43] LABS: BASOPHILS % (AUTO) 0.2 % (0-1); EOSINOPHILS % (AUTO) 0 % (0-6); HEMATOCRIT 24.5 % (35.0-45.0); HEMOGLOBIN 7.8 g/dl (12.0-16.0); LYMPHOCYTES # (AUTO) 0.5 X10'3 (1.1-4.8); LYMPHOCYTES % (AUTO) 3.4 % (21-51); MEAN CORPUSCULAR HEMOGLOBIN 33.2 PG (27.0-31.0); MEAN CORPUSCULAR HGB CONC 31.9 g/dL (33.0-36.5); MEAN PLATELET VOLUME 10.9 FL (7.4-10.4); MONOCYTES # (AUTO) 0.4 X10'3 (0-0.9); MONOCYTES % (AUTO) 2.5 % (2-12); NEUTROPHILS # (AUTO) 13.2 X10'3 (1.8-7.7); NEUTROPHILS % (AUTO) 93.9 % (42-75); PLATELET COUNT 154 X10'3 (140-440); RED BLOOD COUNT 2.36 X10'6 (4.20-5.60); RED CELL DISTRIBUTION WIDTH 16.9 % (11.5-14.5); WHITE BLOOD COUNT 14.1 X10'3 (4.5-11.0)
[2022-12-11 08:06] LABS: ALANINE AMINOTRANSFERASE 18 U/L (12-78); ALBUMIN 3.7 G/DL (3.4-5.0); ALBUMIN/GLOBULIN RATIO 1.3 (1.1-1.5); ALKALINE PHOSPHATASE 46 IU/L (46-116); ANION GAP 12 (8-16); ASPARTATE AMINO TRANSFERASE 16 U/L (10-37); BILIRUBIN,TOTAL 0.2 MG/DL (0.1-1.0); BLOOD UREA NITROGEN 55 MG/DL (7-18); BUN/CREATININE RATIO 15.8 (10.0-20.0); CHLORIDE 102 MMOL/L (99-107); CREATININE 3.48 MG/DL (0.40-0.90); GLUCOSE 113 MG/DL (70-104); POTASSIUM 5.5 MMOL/L (3.5-5.1); SODIUM 135 MMOL/L (135-145); TOTAL CARBON DIOXIDE 21.1 MMOL/L (24-32); TOTAL PROTEIN 6.5 G/DL (6.4-8.2); eCRCL 10 ML/MIN; eGFR 13 ML/MIN
[2022-12-11] MEDS ORDERED: CEFD300C3 PO (09:17)
[2022-12-11] MEDS ORDERED: PRED20TA PO ×2 (09:17→09:27)
[2022-12-11] MEDS ORDERED: insulin regular, human 10 units/0.1 ml syringe SQ ONE (09:20)
[2022-12-11] MEDS ORDERED: furosemide 20 MG/2 ML vial IV ONE (09:20)
[2022-12-11] MEDS ORDERED: albuterol 2.5 MG/3 ML nebule CONTNEB ONE (09:20)
[2022-12-11] MEDS ORDERED: dextrose 50%-water 50ml dispensing syringe IV ONE (09:20)
[2022-12-11] MEDS ORDERED: calcium chloride 100 MG/1 ML inj IV ONE (09:20)
[2022-12-11] MEDS ORDERED: sodium bicarbonate (8.4%) 1 mEq/ml syringe IV ONE (09:20)
[2022-12-11] MEDS ORDERED: CEFD300C17 PO (09:27)
[2022-12-11] MEDS ORDERED: calcium chloride inj. 1,000 MG in NS 100ml IV soln (110ml) IV ONE (09:30)
[2022-12-11] MEDS ORDERED: CALCIUM GLUC 1gm/50ml NACL,iso 50 ML IV ONE (09:30)
[2022-12-11] MEDS: LORazepam 0.5 MG tablet PO PRN (09:54)
[2022-12-11] MEDS: acetaminophen 325mg tablet PO PRN (09:56)
--- NOTE | 2022-12-11 10:48 | NUR ---
O2 Sat at rest on room air:_84__% If below 89%: Recovery O2 Sat at rest on _4__LPM:_92__%:___% via___NC (mask/nasal cannula, etc..) No further documentation is necessary. If O2 Sat did not drop below 89% on room air,ambulate patient on room air. O2 Sat while ambulating on room air:___% Recovery O2 Sat while ambulating on ___LPM:___% No further documentation is necessary. If patient does not drop below 89% while ambulating, he/she does not qualify for home O2.
[2022-12-11 13:58] LABS: ALBUMIN 3.8 G/DL (3.4-5.0); ANION GAP 9 (8-16); BLOOD UREA NITROGEN 59 MG/DL (7-18); BUN/CREATININE RATIO 16.8 (10.0-20.0); CALCIUM 9.5 MG/DL (8.5-10.1); CHLORIDE 101 MMOL/L (99-107); CREATININE 3.51 MG/DL (0.40-0.90); GLUCOSE 70 MG/DL (70-104); POTASSIUM 4.6 MMOL/L (3.5-5.1); SODIUM 138 MMOL/L (135-145); TOTAL CARBON DIOXIDE 28.4 MMOL/L (24-32); eCRCL 10 ML/MIN; eGFR 12 ML/MIN
--- NOTE | 2022-12-11 14:09 | NUR ---
PAGE SENT PAGER ID: [phone] MESSAGE: [phone], Patricia EPPS RESULT; 4.6. THANK YOU, LALITHA Baugh [phone]
[2022-12-11] MEDS ORDERED: BENA20TA2 PO (14:12)
--- NOTE | 2022-12-11 15:31 | NUR ---
PT STABLE FOR DISCHARGE PER MD. DISCHARGE AND FOLLOW UP INSTRUCTIONS REVIEWED WITH PT, APPROPRIATE PAPERWORK SIGNED. TELE BOX REMOVED. PIV REMOVED WITH TIP INTACT. BELONGINGS GATHERED AND RETURNED TO PT. PRESCRIPTIONS FAXED TO [facility]. PT WAS TRANSPORTED TO PRIVATE VEHICLE BY HOSPITAL STAFF. PT DISCHARGED TO HOME.
== END 2022-12-11 15:34 | disposition home health service (06) | DRG 190 ==
LOC: ER 10:46 → ED HOLD 14:40 → PCU 3S 16:57 → SUR 3N 12-10 16:48 → PCU 3S 12-10 16:49
PROVIDERS: ADMIT Internal Medicine; ATTEND Internal Medicine
DX: J44.1 Chronic obstructive pulmonary disease with (acute) exacerbation (principal); J96.01 Acute respiratory failure with hypoxia; I13.0 Hypertensive heart and chronic kidney disease with heart failure and stage 1 through stage 4 chronic kidney disease, or unspecified chronic kidney disease; N17.9 Acute kidney failure, unspecified; I50.30 Unspecified diastolic (congestive) heart failure; N18.4 Chronic kidney disease, stage 4 (severe); I48.20 Chronic atrial fibrillation, unspecified; E78.00 Pure hypercholesterolemia, unspecified; F17.210 Nicotine dependence, cigarettes, uncomplicated; E87.5 Hyperkalemia; E03.9 Hypothyroidism, unspecified; F41.9 Anxiety disorder, unspecified; I25.10 Atherosclerotic heart disease of native coronary artery without angina pectoris; K57.90 Diverticulosis of intestine, part unspecified, without perforation or abscess without bleeding; I05.0 Rheumatic mitral stenosis; Z86.73 Personal history of transient ischemic attack (TIA), and cerebral infarction without residual deficits; Z79.899 Other long term (current) drug therapy; Z87.11 Personal history of peptic ulcer disease; Z99.81 Dependence on supplemental oxygen
CPT/HCPCS: 36415; 36600; 71045; 80048; 80053; 82803; 83605; 83880; 84484; 85007; 85008; 85018; 85025; 87040; 87081; 87502; 87503; 87811; 93005; 94640; 94664; 94668; 94760; 96374; 97116; 97161; 97530; 99285; A4615; A7015; G0378; J0610; J0696; J1650; J1815; J1940; J2270; J2405; J2930; J3490; J7030

== ENCOUNTER 2023-03-09 11:07 | Outpatient (CLI) | payer MEDICARE, OTHER ==
[~2023-03-09 11:07] MED LIST changes: +BENA20TA2 PO; -BENA20TA82 PO; +CEFD300C17 PO; +DOCU-22 PO; +PRED20TA PO
== END 2023-03-09 23:59 | disposition home or self-care (01) ==
LOC: VAS 11:07
PROVIDERS: ATTEND Internal Medicine Cardiovascular Disease
DX: I65.23 Occlusion and stenosis of bilateral carotid arteries (principal); R55 Syncope and collapse
CPT/HCPCS: 93880

== ENCOUNTER 2023-05-15 13:06 | Inpatient (IN) | payer MEDICARE, OTHER ==
[~2023-05-15] VITALS: Ht 167.6 cm; Wt 45.2 kg
[2023-05-15] MEDS: proCHLORperazine 10 MG/2 ml inj IV STA (14:35)
[2023-05-15] MEDS: morphine 4 MG/ML inj SYRINge IV ONE (14:35)
[2023-05-15 14:36] LABS: BASOPHILS % (AUTO) 0.1 % (0-1); EOSINOPHILS % (AUTO) 0 % (0-6); HEMATOCRIT 29.3 % (35.0-45.0); HEMOGLOBIN 9.5 g/dl (12.0-16.0); LYMPHOCYTES # (AUTO) 0.7 X10'3 (1.1-4.8); MEAN CORPUSCULAR HEMOGLOBIN 31.6 PG (27.0-31.0); MEAN CORPUSCULAR HGB CONC 32.5 g/dL (33.0-36.5); MEAN CORPUSCULAR VOLUME 97.2 FL (78-98); MONOCYTES # (AUTO) 1.3 X10'3 (0-0.9); MONOCYTES % (AUTO) 3.7 % (2-12); NEUTROPHILS # (AUTO) 33.4 X10'3 (1.8-7.7); NEUTROPHILS % (AUTO) 94.2 % (42-75); PLATELET COUNT 193 X10'3 (140-440); RED BLOOD COUNT 3.02 X10'6 (4.20-5.60); RED CELL DISTRIBUTION WIDTH 16.2 % (11.5-14.5)
[2023-05-15 14:40] LABS: WHITE BLOOD COUNT 35.4 X10'3 (4.5-11.0)
[2023-05-15 14:42] LABS: ALBUMIN 3.1 G/DL (3.4-5.0); ANION GAP 13 (8-16); BLOOD UREA NITROGEN 69 MG/DL (7-18); BUN/CREATININE RATIO 9.3 (10.0-20.0); CALCIUM 11.5 MG/DL (8.5-10.1); CHLORIDE 101 MMOL/L (99-107); CREATININE 7.45 MG/DL (0.40-0.90); GLUCOSE 147 MG/DL (70-104); SODIUM 141 MMOL/L (135-145); TOTAL CARBON DIOXIDE 27.1 MMOL/L (24-32); eCRCL 4 ML/MIN; eGFR 5 ML/MIN
[2023-05-15 15:21] LABS: ANISOCYTOSIS 1+; PLATELET ESTIMATE NORMAL; POIKILOCYTOSIS FEW; TOTAL CELLS COUNTED 100
[2023-05-15 15:38] LABS: ALANINE AMINOTRANSFERASE 20 U/L (12-78); ALBUMIN/GLOBULIN RATIO 0.7 (1.1-1.5); ALKALINE PHOSPHATASE 53 IU/L (46-116); ASPARTATE AMINO TRANSFERASE 25 U/L (10-37); BILIRUBIN,DIRECT 0.1 MG/DL (0-0.3); BILIRUBIN,TOTAL 0.4 MG/DL (0.1-1.0); TOTAL PROTEIN 7.7 G/DL (6.4-8.2)
[2023-05-15] MEDS: normal saline 1000ML IV soln IVB ONE (15:45)
[2023-05-15] MEDS ORDERED: magnesium hydroxide 30ml (MOM) UD suspension PO PRN (16:35)
[2023-05-15] MEDS ORDERED: magnesium 4gm in 100ml NS 100 ML IV PRN (16:35)
[2023-05-15] MEDS ORDERED: potassium Cl 40MEQ/1/2NS 520ml 520 ML IV PRN (16:35)
[2023-05-15] MEDS ORDERED: magnesium Cl slow-release 64mg tablet PO PRN (16:35)
[2023-05-15] MEDS ORDERED: acetaminophen 325mg tablet PO PRN (16:35)
[2023-05-15] MEDS ORDERED: magnesium 2GM in 50ml NS 50 ML IV PRN (16:35)
[2023-05-15] MEDS ORDERED: potassium Cl 20 mEq SR tablet PO PRN ×2 (16:35)
[2023-05-15] MEDS: normal saline 1000ml 1,000 ML IV SCH (17:13)
[2023-05-15 19:10] VITALS: BP 134/45; PULSE 58; RESP 15; TEMP 98.5; O2SAT 94
[2023-05-15] MEDS: K and/or MAG REPLACEMENT MC SCH (19:51)
[2023-05-15 20:00] VITALS: RESP 18; O2SAT 94
[2023-05-15] MEDS: LORazepam 2 mg/ml vial IV PRN (20:01)
[2023-05-16 07:00] VITALS: BP 139/49; PULSE 61; RESP 18; TEMP 97.4; O2SAT 94
[2023-05-16 10:00] VITALS: BP 127/37; PULSE 60; RESP 16; TEMP 97.7; O2SAT 93
[2023-05-16] MEDS: ondansetron/PF 4mg/2ml inj IV PRN (10:09)
[2023-05-16] MEDS: morphine 10mg/0.5ml (conc. morphine) oral syringe PO PRN (16:44)
[2023-05-16] MEDS: folic acid 1mg tablet PO SCH (17:20)
[2023-05-16] MEDS: predniSONE 20 mg tablet PO SCH (17:20)
[2023-05-16] MEDS: amLODIPine 5mg tablet PO SCH (17:20)
[2023-05-16] MEDS ORDERED: non-formulary drug (Albuterol 2 PUFFS) IH PRN (17:20)
[2023-05-16] MEDS ORDERED: ipratropium/albuterol 3ml nebule NEB PRN (17:20)
[2023-05-16 18:00] VITALS: BP 92/53; PULSE 71; RESP 16; TEMP 98.1; O2SAT 95
[2023-05-16] MEDS: atorvastatin 10mg tablet PO SCH (19:34)
[2023-05-16] MEDS: morphine 10mg/ml inj. IV PRN (19:34)
[2023-05-16 20:00] VITALS: RESP 16; O2SAT 95
[2023-05-16 20:24] VITALS: PULSE 63; RESP 14; O2SAT 92
[2023-05-16] MEDS: budesonide 0.5mg/2ml UD nebule IH SCH (20:43)
[2023-05-16] MEDS: albuterol 2.5 MG/3 ML nebule NEB SCH (20:44)
[2023-05-16 22:00] VITALS: BP 152/56; PULSE 75; RESP 18; TEMP 97.6; O2SAT 92
[2023-05-17] VITALS (7 sets, daily range): BP systolic 133–138; BP diastolic 48–60; PULSE 70–82; RESP 14–20; TEMP 97–98.2; O2SAT 85–95
[2023-05-17] MEDS: cyanocobalamin 500mcg tablet PO SCH (07:58)
[2023-05-17] MEDS: multivitamins, therapeutics tablet PO SCH (07:58)
[2023-05-17] MEDS: levoTHYROXINE 88mcg tablet PO SCH (07:58)
[2023-05-17] MEDS ORDERED: non-formulary drug (Fluticasone/Vilanterol (Breo Ellipta 200-25 Mcg INH) 1 PUFF) INH SCH (08:00)
[2023-05-18 06:00] VITALS: BP 134/48; PULSE 68; RESP 18; TEMP 98; O2SAT 92
[2023-05-18 07:18] VITALS: PULSE 76; RESP 14; O2SAT 87
[2023-05-18 08:58] VITALS: RESP 18; O2SAT 92
[2023-05-18] MEDS: LORazepam 0.5 MG tablet PO PRN (09:24)
[2023-05-18 10:00] VITALS: BP 122/60; PULSE 68; RESP 14; TEMP 98.5; O2SAT 93
== END 2023-05-18 11:49 | disposition hospice, home (50) | DRG 871 ==
LOC: ER 13:07 → ED HOLD 16:37 → ORTHO 4S 19:10
PROVIDERS: ADMIT Internal Medicine; ATTEND Internal Medicine
DX: A41.9 Sepsis, unspecified organism (principal); N18.6 End stage renal disease; N17.9 Acute kidney failure, unspecified; I13.2 Hypertensive heart and chronic kidney disease with heart failure and with stage 5 chronic kidney disease, or end stage renal disease; J96.11 Chronic respiratory failure with hypoxia; K56.7 Ileus, unspecified; Z66 Do not resuscitate; E87.5 Hyperkalemia; I71.40 Abdominal aortic aneurysm, without rupture, unspecified; J42 Unspecified chronic bronchitis; I25.10 Atherosclerotic heart disease of native coronary artery without angina pectoris; F17.210 Nicotine dependence, cigarettes, uncomplicated; E78.00 Pure hypercholesterolemia, unspecified; E83.52 Hypercalcemia; K80.20 Calculus of gallbladder without cholecystitis without obstruction; E79.0 Hyperuricemia without signs of inflammatory arthritis and tophaceous disease; F41.9 Anxiety disorder, unspecified; I50.9 Heart failure, unspecified; K57.90 Diverticulosis of intestine, part unspecified, without perforation or abscess without bleeding; Z86.73 Personal history of transient ischemic attack (TIA), and cerebral infarction without residual deficits; Z79.899 Other long term (current) drug therapy; Z95.1 Presence of aortocoronary bypass graft; I25.2 Old myocardial infarction; Z51.5 Encounter for palliative care; Z87.11 Personal history of peptic ulcer disease
CPT/HCPCS: 36415; 71045; 74176; 80048; 80076; 83605; 84145; 85007; 85025; 87040; 87081; 94760; 99285; G0378; J0780; J2060; J2270; J2274; J2405; J7030; J7512